=== PATIENT | female | born 1955 | race Caucasian/White ===

== ENCOUNTER 2018-10-09 21:28 | Emergency (ER) | payer OTHER ==
[2018-10-09 22:33] VITALS: BP 121/63; PULSE 72; TEMP 97.7; BMI 24.6
--- NOTE | 2018-10-09 22:39 | PDOC ---
History of Present Illness - General History Source: Patient Exam Limitations: No Limitations - History of Present Illness Initial Comments: 10/09/18 23:40 62 YOF with a PMH of sciatica and fibromyalgia presents to the ER for chronic, right sided lower back pain. Patient reports taking 2 Tylenols and a motrin at home with no relief. Patient admits to having similar lower back pain approximately once a year. The patient denies chest pain, shortness of breath, headache and dizziness. Denies fever, chills, nausea, vomit, diarrhea and constipation. Denies dysuria, frequency, urgency and hematuria. Allergies: NKA Past surgical history: None reported. Social history: No reported alcohol, drug or cigarette use. <Nika Yanez - Last Filed: 10/09/18 23:50> <Elisabet Bains - Last Filed: 10/10/18 00:40> - General Chief Complaint: Chronic pain Stated Complaint: SCIATICA Time Seen by Provider: 10/09/18 21:42 Past History <Nika Yanez - Last Filed: 10/09/18 23:50> - Suicide/Smoking/Psychosocial Hx Smoking History: Never smoked Have you smoked in the past 12 months: No Information on smoking cessation initiated: No Hx Alcohol Use: No Drug/Substance Use Hx: No <Elisabet Bains - Last Filed: 10/10/18 00:40> - Past Medical History Allergies/Adverse Reactions: Allergies Allergy/AdvReac Type Severity Reaction Status Date / Time No Known Allergies Allergy Verified 10/09/18 22:20 Review of Systems - Review of Systems Able to Perform ROS?: Yes Comments:: 10/09/18 23:47 ADULT ROS GENERAL/CONSTITUTIONAL: No fever or chills. No weakness. HEAD, EYES, EARS, NOSE AND THROAT: No change in vision. No ear pain or discharge. No sore throat. CARDIOVASCULAR: No chest pain or shortness of breath. RESPIRATORY: No cough, wheezing, or hemoptysis. GASTROINTESTINAL: No nausea, vomiting, diarrhea or constipation. GENITOURINARY: No dysuria, frequency, or change in urination. MUSCULOSKELETAL: No joint or muscle swelling or pain. No neck pain. (+) back pain. SKIN: No rash NEUROLOGIC: No headache, vertigo, loss of consciousness, or change in strength/ sensation. ENDOCRINE: No increased thirst. No abnormal weight change. HEMATOLOGIC/LYMPHATIC: No anemia, easy bleeding, or history of blood clots. ALLERGIC/IMMUNOLOGIC: No hives or skin allergy. <Nika Yanez - Last Filed: 10/09/18 23:50> *Physical Exam - Vital Signs Last Vital Signs Temp Pulse Resp BP Pulse Ox 97.7 F 72 20 121/63 99 10/09/18 21:28 10/09/18 21:28 10/09/18 21:28 10/09/18 21:28 10/09/18 21:28 - Physical Exam Comments: 10/09/18 23:24 ADULT EXAM GENERAL: Awake, alert, and fully oriented, in no acute distress LUNGS: Breath sounds equal, clear to auscultation bilaterally. No wheezes, and no crackles HEART: Regular rate and rhythm, normal S1 and S2, no murmurs, rubs or gallops ABDOMEN: Soft, nontender, normoactive bowel sounds. No guarding, no rebound. No masses BACK: (+) Right lower back tenderness. EXTREMITIES: Normal range of motion, no edema. No clubbing or cyanosis. No cords, erythema, or tenderness NEUROLOGICAL: Cranial nerves II through XII grossly intact. Normal speech, normal gait SKIN: Warm, Dry, normal turgor, no rashes or lesions noted. <Nika Yanez - Last Filed: 10/09/18 23:50> - Vital Signs Last Vital Signs Temp Pulse Resp BP Pulse Ox 97.7 F 72 20 121/63 99 10/09/18 21:28 10/09/18 21:28 10/09/18 21:28 10/09/18 21:28 10/09/18 21:28 <Elisabet Bains - Last Filed: 10/10/18 00:40> Moderate Sedation - Procedure Monitoring Vital Signs: Procedure Monitoring Vital Signs Temperature 97.7 F 10/09/18 21:28 Pulse Rate 72 10/09/18 21:28 Respiratory Rate 20 10/09/18 21:28 Blood Pressure 121/63 10/09/18 21:28 O2 Sat by Pulse Oximetry (%) 99 10/09/18 21:28 <Nika Yanez - Last Filed: 10/09/18 23:50> - Procedure Monitoring Vital Signs: Procedure Monitoring Vital Signs Temperature 97.7 F 10/09/18 21:28 Pulse Rate 72 10/09/18 21:28 Respiratory Rate 20 10/09/18 21:28 Blood Pressure 121/63 10/09/18 21:28 O2 Sat by Pulse Oximetry (%) 99 10/09/18 21:28 <Elisabet Bains - Last Filed: 10/10/18 00:40> Medical Decision Making - Medical Decision Making 10/10/18 00:38 72-year-old female with a history of sciatica that seems to recur one to 2 times a year presents with pain in her right low back, buttocks going down her leg. She said when this happens she usually gets a shot. She has no fecal or bladder incontinence, no saddle anesthesia, no weakness in her legs She denies any recent trauma Impression Chronic intermittent sciatica. She received pain medication, muscle relaxants and was discharged <Elisabet Bains - Last Filed: 10/10/18 00:40> *DC/Admit/Observation/Transfer - Attestations Scribe Attestion: 10/09/18 23:24 Documentation prepared by Nika Yanez, acting as medical technologist generalist for Elisabet Bains MD. <Nika Yanez - Last Filed: 10/09/18 23:50> <Elisabet Bains - Last Filed: 10/10/18 00:40> Diagnosis at time of Disposition: Sciatica Qualifiers: Laterality: right Qualified Code(s): M54.31 - Sciatica, right side - Discharge Dispostion Disposition: HOME Condition at time of disposition: Improved - Patient Instructions Printed Discharge Instructions: DI for Back Pain With Sciatica Additional Instructions: please followup with your regular physician
[2018-10-09] MEDS ORDERED: KETOROLAC TROMETHAMINE 30 MG/1 ML VIAL IM ONE (23:57)
[2018-10-09] MEDS ORDERED: diazePAM 2 MG TABLET PO ONE (23:58)
[2018-10-10] MEDS ORDERED: diazePAM 2 MG TABLET ONE (00:18)
[2018-10-10] MEDS ORDERED: KETOROLAC TROMETHAMINE 30 MG/1 ML VIAL ONE ×2 (00:18→00:19)
== END 2018-10-10 00:42 | disposition home or self-care (01) ==
LOC: JER 21:28
PROC: 3E0233Z Introduction of Anti-inflammatory into Muscle, Percutaneous Approach (ICD-10-PCS; principal; 2018-10-09)
DX: M54.41 Lumbago with sciatica, right side (principal)
CPT/HCPCS: 96372; 99281-25

== ENCOUNTER 2019-10-22 19:19 | Emergency (ER) | payer OTHER ==
[2019-10-22 19:33] VITALS: TEMP 98.7; BMI 25.4
--- NOTE | 2019-10-22 19:42 | PDOC ---
Rapid Medical Evaluation Chief Complaint: Diarrhea Time Seen by Provider: 10/22/19 19:30 Medical Evaluation: Allergies Allergy/AdvReac Type Severity Reaction Status Date / Time No Known Allergies Allergy Verified 10/22/19 19:33 Vital Signs Temp Pulse Resp BP Pulse Ox 98.7 F 94 H 18 125/64 99 10/22/19 19:30 10/22/19 19:30 10/22/19 19:30 10/22/19 19:30 10/22/19 19:30 10/22/19 19:41 Pt c/o: abd pain, + diarrhea, no fever, no urinary complaints Pt on brief exam: gen agd tenderness, vss pt ordered for: cbc, comp, lipase, urine Pt to proceed to the ED Discharge Disposition - Diagnosis Gastroenteritis Abdominal pain Qualifiers: Abdominal location: generalized Qualified Code(s): R10.84 - Generalized abdominal pain - Discharge Dispostion Disposition: HOME - Referrals - Patient Instructions Printed Discharge Instructions: Viral Gastroenteritis Additional Instructions: Drink plenty of fluids start a BRAT ( bananas, rice apples toast) follow up with your doctor return to the ER if symptoms worsen - Post Discharge Activity Work/School Note: Back to Work
--- NOTE | 2019-10-23 00:40 | PDOC ---
History of Present Illness - General Chief Complaint: Diarrhea Stated Complaint: ABD PAIN/DIARRHEA Time Seen by Provider: 10/22/19 19:30 History Source: Patient - History of Present Illness Initial Comments: 10/23/19 03:32 64-year-old female here with generalized abdominal pain, nausea, diarrhea and abdominal cramping since yesterday morning. Patient reports that her granddaughter and [id number] with similar symptoms. Denies fever/chills. Patient reports that she has not been able to tolerate anything by mouth. Past medical history of fibromyalgia, abdominal surgeries Past History - Past Medical History Allergies/Adverse Reactions: Allergies Allergy/AdvReac Type Severity Reaction Status Date / Time No Known Allergies Allergy Verified 10/22/19 19:33 COPD: No Other medical history: FIBROMYALGIA, BRAIN TUMOR. - Surgical History Appendectomy: Yes Cholecystectomy: Yes - Psycho Social/Smoking Cessation Hx Smoking History: Never smoked Have you smoked in the past 12 months: No Hx Alcohol Use: No Drug/Substance Use Hx: No *Physical Exam - Vital Signs Last Vital Signs Temp Pulse Resp BP Pulse Ox 98.7 F 94 H 18 125/64 99 10/22/19 19:30 10/22/19 19:30 10/22/19 19:30 10/22/19 19:30 10/22/19 19:30 - Physical Exam General Appearance: Yes: Appropriately Dressed Respiratory/Chest: positive: Lungs Clear, Normal Breath Sounds Cardiovascular: positive: Regular Rhythm, Regular Rate Gastrointestinal/Abdominal: positive: Normal Bowel Sounds, Tender (generalized abdominal tenderness), Soft Integumentary: positive: Normal Color, Dry, Warm Neurologic: positive: Fully Oriented, Alert, Normal Mood/Affect ED Treatment Course - LABORATORY CBC & Chemistry Diagram: 10/23/19 01:00 10/23/19 01:00 ED Progress Note - Progress Note Progress Note: GAstroenteritis P: cbc cmp IVF zofran Medical Decision Making - Medical Decision Making tolerated PO. feeling better. no abdominal pain will d.c home Discharge - Discharge Information Problems reviewed: Yes Clinical Impression/Diagnosis: Gastroenteritis Abdominal pain Qualifiers: Abdominal location: generalized Qualified Code(s): R10.84 - Generalized abdominal pain Disposition: HOME - Follow up/Referral - Patient Discharge Instructions Patient Printed Discharge Instructions: Viral Gastroenteritis Additional Instructions: Drink plenty of fluids start a BRAT ( bananas, rice apples toast) follow up with your doctor return to the ER if symptoms worsen - Post Discharge Activity Work/Back to School Note: Back to Work
[2019-10-23] MEDS ORDERED: SODIUM CHLORIDE 1,000 ML IV STA (00:41)
[2019-10-23] MEDS ORDERED: ACETAMINOPHEN 1000 MG/100 ML VIAL (NON FORMULARY) IVPB ONE (00:41)
--- NOTE | 2019-10-23 00:41 | PDOC ---
*Physical Exam - Vital Signs Last Vital Signs Temp Pulse Resp BP Pulse Ox 98.7 F 94 H 18 125/64 99 10/22/19 19:30 10/22/19 19:30 10/22/19 19:30 10/22/19 19:30 10/22/19 19:30 ED Treatment Course - LABORATORY CBC & Chemistry Diagram: 10/23/19 01:00 10/23/19 01:00 Medical Decision Making - Medical Decision Making 10/23/19 00:41 Patient seen by the advanced practice provider under my direct supervision. Ancillary testing reviewed as necessary. I agree with plan as outlined by the advanced practice provider. Discharge - Discharge Information Problems reviewed: Yes Clinical Impression/Diagnosis: Abdominal pain - Follow up/Referral - Patient Discharge Instructions - Post Discharge Activity
[2019-10-23] MEDS ORDERED: ONDANSETRON 4 MG/2 ML VIAL IVPUSH ONE (00:45)
[2019-10-23] MEDS ORDERED: ONDANSETRON 4 MG/2 ML VIAL ONE (01:07)
[2019-10-23] MEDS ORDERED: ACETAMINOPHEN INJECTION 100 ML IVPB ONE (01:07)
[2019-10-23 02:40] LABS: BASO % 0.5 % (0-2.0); EOS % 0.7 % (0-4.5); HEMATOCRIT 43.3 % (32.4-45.2); HEMOGLOBIN 14.6 GM/dL (10.7-15.3); LYMPH % 24.5 % (8-40); MCH 31.3 pg (25.7-33.7); MCHC 33.6 g/dl (32.0-36.0); MEAN CELL VOLUME 93.2 fl (80-96); MEAN PLT VOLUME 9.5 fl (7.5-11.1); MONO % 7.3 % (3.8-10.2); PLATELET COUNT 204 K/MM3 (134-434); RBC 4.65 M/mm3 (3.60-5.2); RDW 12.5 % (11.6-15.6); WHITE BLOOD COUNT 6.3 K/mm3 (4.0-10.0)
[2019-10-23 03:09] LABS: EPI CELLS 1.1 /HPF (0-5/HPF); HYALINE CASTS 1 /lpf (0-8); URINE APPEARANCE CLEAR; URINE BACTERIA 3.4 /hpf (NEGATIVE); URINE BILIRUBIN NEGATIVE (NEGATIVE); URINE COLOR YELLOW; URINE GLUCOSE (UA) NEGATIVE (NEGATIVE); URINE KETONE NEGATIVE (NEGATIVE); URINE LEUK ESTERASE TRACE (NEGATIVE); URINE NITRITE NEGATIVE (NEGATIVE); URINE PROTEIN NEGATIVE (NEGATIVE); URINE RBC 1 /hpf (0-4); URINE UROBILINOGEN 0.2 mg/dL (0.2-1.0); URINE WBC 4 /hpf (0-5)
[2019-10-23 03:10] VITALS: BP 121/61; PULSE 74
[2019-10-23 03:43] LABS: ALBUMIN 4.1 g/dl (3.4-5.0); BLOOD UREA NITROGEN 9.5 mg/dL (7-18); CALCIUM 8.7 mg/dL (8.5-10.1); CREATININE 0.8 mg/dL (0.55-1.3); POTASSIUM 4.3 mmol/L (3.5-5.1); TOT PROT 7.8 g/dl (6.4-8.2)
== END 2019-10-23 04:04 | disposition home or self-care (01) ==
LOC: JER 19:19
PROC: 3E033NZ Introduction of Analgesics, Hypnotics, Sedatives into Peripheral Vein, Percutaneous Approach (ICD-10-PCS; principal; 2019-10-22)
PROC: 3E033GC Introduction of Other Therapeutic Substance into Peripheral Vein, Percutaneous Approach (ICD-10-PCS; 2019-10-22)
DX: K52.9 Noninfective gastroenteritis and colitis, unspecified (principal); M79.7 Fibromyalgia; Z90.49 Acquired absence of other specified parts of digestive tract
CPT/HCPCS: 36415; 80053; 81003; 83690; 85025; 96374; 96375; 99283-25; J0131; J7030